=== PATIENT | male | born 1945 | race Two or more races ===

== ENCOUNTER 2020-05-28 20:39 | Emergency (ER) | payer MEDICARE, MEDICAID ==
[~2020-05-28] VITALS: Ht 182.9 cm; Wt 76.2 kg
[2020-05-28] MEDS ORDERED: SODIUM CHLORIDE 0.9% 1,000 ML IV ONE (21:00)
[2020-05-28 21:24] LABS: Hematocrit 40.5 % (41.0-53.0); Hemoglobin 13.9 g/dL (13.5-17.5); Mean Corpuscular Hemoglobin 25.5 pg (28.0-32.0); Mean Corpuscular Hgb Conc. 34.4 g/dL (32.0-36.0); Mean Corpuscular Volume 73.9 fL (80.0-100.0); Platelet Count (auto) 358 10^3/uL (140-450); Red Blood Cells 5.47 10^6/uL (4.5-5.90); Red Cell Distribution Width 14.6 % (11.8-14.3); White Blood Cell 8.7 10^3/uL (4.4-10.8)
[2020-05-28 21:26] LABS: Basophils % (manual) 0 (0.0-2.0); Blast Cells 0; Myelocytes % 0; Promyelocytes % 0; Reactive Lymphocytes 0
[2020-05-28 21:39] LABS: INR 0.97 (0.9-1.15); Partial Thromboplastin Time 29.7 sec (23.0-31.2)
[2020-05-28 21:42] LABS: Albumin 3.4 g/dL (3.4-5.0); Anion Gap 12 (5-15); Aspartate Aminotransferase 33 U/L (15-37); BUN/Creatinine Ratio 11.6; Blood Urea Nitrogen 10 mg/dL (7-18); Calcium 7.9 mg/dL (8.5-10.1); Carbon Dioxide 26 mmol/L (21-32); Chloride 79 mmol/L (98-107); GFR African American 112 mL/min; GFR Non-African American 93 mL/min; Glucose 115 mg/dL (74-106); Magnesium 2.2 mg/dL (1.6-2.6); Potassium 3.1 mmol/L (3.5-5.1)
[2020-05-28 21:47] LABS: Sodium 117 mmol/L (136-145)
[2020-05-28 21:49] LABS: Band Neutrophils % (manual) 2; Eosinophils % (manual) 3 (0-7); Lymphocytes % (manual) 17 (10.0-50.0); Metamyelocytes % 1; Monocytes % (manual) 20 (0-12)
[2020-05-28 21:51] LABS: Alanine Aminotransferase 34 U/L (16-61); Alkaline Phosphatase 103 U/L (45-117); Bilirubin, Total 0.4 mg/dL (0.2-1.0); Total Protein 7.4 g/dL (6.4-8.2)
[2020-05-28 23:34] LABS: Urine Bacteria FEW /hpf (None Seen); Urine Blood Negative /uL (Negative); Urine Specific Gravity 1.002 (1.001-1.035); Urine WBC <1 /hpf (0 - 3)
[2020-05-29] MEDS ORDERED: SODIUM CHL 3% 500 ML IV ONE (08:15)
[2020-05-29 08:23] LABS: BUN/Creatinine Ratio 8.5; Calcium 8.2 mg/dL (8.5-10.1); Potassium 3.1 mmol/L (3.5-5.1)
[2020-05-29] MEDS ORDERED: SODIUM CHLORIDE 0.9% 1,000 ML IV ONE (09:45)
[2020-05-29 13:45] VITALS: BP 166/59
== END 2020-05-29 13:59 | disposition home or self-care (01) ==
LOC: EDBD 20:39 → ER 20:45
DX: E87.1 Hypo-osmolality and hyponatremia (principal); I10 Essential (primary) hypertension; E11.9 Type 2 diabetes mellitus without complications
CPT/HCPCS: 36415; 71045; 80048; 80053; 81001; 83735; 83880; 84443; 84484; 85007; 85027; 85610; 85730; 93005; 96360; 96361

== ENCOUNTER 2020-08-14 21:49 | Emergency (ER) | payer MEDICARE, MEDICAID ==
[~2020-08-14] VITALS: Ht 180.3 cm; Wt 72.6 kg
[2020-08-14 22:59] LABS: Basophils # (auto) 0.1 10 ^3/uL (0-0.2); Basophils % (auto) 0.5 % (0.0-2.0); Eosinophils # (auto) 0.3 10 ^3/uL (0-0.8); Eosinophils % (auto) 2.7 % (0.0-7.0); Hematocrit 41.5 % (41.0-53.0); Hemoglobin 13.8 g/dL (13.5-17.5); Lymphocytes # (auto) 1.6 10 ^3/uL (0.4-5.4); Lymphocytes % (auto) 14.7 % (10.0-50.0); Mean Corpuscular Hemoglobin 24.6 pg (28.0-32.0); Mean Corpuscular Hgb Conc. 33.3 g/dL (32.0-36.0); Mean Corpuscular Volume 74.1 fL (80.0-100.0); Monocytes # (auto) 1.5 10 ^3/uL (0-1.3); Monocytes % (auto) 13.3 % (0.0-12.0); Neutrophils # (auto) 7.6 10 ^3/uL (1.6-8.6); Neutrophils % (auto) 68.8 % (37.0-80.0); Red Blood Cells 5.61 10^6/uL (4.5-5.90); Red Cell Distribution Width 16.1 % (11.8-14.3)
[2020-08-14 23:16] LABS: Albumin 3.6 g/dL (3.4-5.0); Anion Gap 10 (5-15); Blood Urea Nitrogen 17 mg/dL (7-18); Calcium 8.3 mg/dL (8.5-10.1); Carbon Dioxide 25 mmol/L (21-32); Chloride 93 mmol/L (98-107); Glucose 150 mg/dL (74-106); Potassium 3.8 mmol/L (3.5-5.1); Sodium 128 mmol/L (136-145)
[2020-08-14 23:18] LABS: Alanine Aminotransferase 31 U/L (16-61); Aspartate Aminotransferase 26 U/L (15-37); BUN/Creatinine Ratio 18.9; GFR African American 106 mL/min; GFR Non-African American 88 mL/min
[2020-08-14 23:19] LABS: INR 1.06 (0.9-1.15); Partial Thromboplastin Time 28.8 sec (23.0-31.2)
[2020-08-14 23:23] LABS: Alkaline Phosphatase 89 U/L (45-117); Bilirubin, Total 0.5 mg/dL (0.2-1.0); Total Protein 8.2 g/dL (6.4-8.2)
[2020-08-15] MEDS ORDERED: SODIUM CHLORIDE 0.9% 1,000 ML IV ONE (05:30)
[2020-08-15 06:24] VITALS: BP 171/55
== END 2020-08-15 06:51 | disposition home or self-care (01) ==
LOC: EDBD 21:49 → ER 21:49
DX: R07.89 Other chest pain (principal); R00.2 Palpitations; I10 Essential (primary) hypertension; F41.9 Anxiety disorder, unspecified; I25.10 Atherosclerotic heart disease of native coronary artery without angina pectoris; E11.9 Type 2 diabetes mellitus without complications; Z98.890 Other specified postprocedural states
CPT/HCPCS: 36415; 71045; 80053; 83735; 83880; 84484; 85025; 85610; 85730; 93005; 96360; 99285; J7030

== ENCOUNTER 2020-09-11 10:57 | Inpatient (IN) | payer MEDICARE, MEDICAID ==
[~2020-09-11] VITALS: Ht 182.9 cm; Wt 74.5 kg
[2020-09-11] MEDS ORDERED: ASPirin 81 mg TAB PO ONE (11:15)
[2020-09-11 11:16] LABS: Basophils # (auto) 0 10 ^3/uL (0-0.2); Eosinophils # (auto) 0.1 10 ^3/uL (0-0.8)
[2020-09-11 11:18] LABS: Basophils % (auto) 0.6 % (0.0-2.0); Eosinophils % (auto) 1.3 % (0.0-7.0); Hematocrit 40.7 % (41.0-53.0); Hemoglobin 13.9 g/dL (13.5-17.5); Lymphocytes # (auto) 1.8 10 ^3/uL (0.4-5.4); Lymphocytes % (auto) 24.2 % (10.0-50.0); Mean Corpuscular Hemoglobin 25.2 pg (28.0-32.0); Mean Corpuscular Hgb Conc. 34.1 g/dL (32.0-36.0); Mean Corpuscular Volume 73.8 fL (80.0-100.0); Monocytes % (auto) 13.7 % (0.0-12.0); Neutrophils # (auto) 4.5 10 ^3/uL (1.6-8.6); Neutrophils % (auto) 60.2 % (37.0-80.0); Nucleated Red Blood Cells % 0.1 %; Platelet Count (auto) 385 10^3/uL (140-450); Red Blood Cells 5.51 10^6/uL (4.5-5.90); Red Cell Distribution Width 15.3 % (11.8-14.3); White Blood Cell 7.5 10^3/uL (4.4-10.8)
[2020-09-11 11:31] LABS: Albumin 3.4 g/dL (3.4-5.0); Anion Gap 8 (5-15); Blood Urea Nitrogen 13 mg/dL (7-18); Calcium 8.7 mg/dL (8.5-10.1); Carbon Dioxide 26 mmol/L (21-32); Chloride 87 mmol/L (98-107); Glucose 120 mg/dL (74-106); Potassium 3.8 mmol/L (3.5-5.1); Sodium 121 mmol/L (136-145)
[2020-09-11 11:38] LABS: Alanine Aminotransferase 26 U/L (16-61); Alkaline Phosphatase 100 U/L (45-117); Aspartate Aminotransferase 27 U/L (15-37); Bilirubin, Total 0.8 mg/dL (0.2-1.0); GFR African American 102 mL/min; GFR Non-African American 85 mL/min
[2020-09-11] MEDS ORDERED: IOHEXOL 350 MG/ML 100ML IJ ONE (12:14)
[2020-09-11] MEDS ORDERED: MORPHINE SULF INJ 2 MG/ML SYRINGE 1ML IV PRN ×2 (13:45→14:45)
[2020-09-11] MEDS ORDERED: NITROGLYCERIN 0.4 MG SL TAB SL PRN (13:45)
[2020-09-11] MEDS ORDERED: ALPRAZolam 0.5 MG TAB PO PRN (14:45)
[2020-09-11] MEDS ORDERED: ONDANSETRON HCL 4 MG/2 ML VIAL IV PRN (14:45)
[2020-09-11] MEDS ORDERED: ACETAMINOPHEN 325 MG TAB PO PRN (14:45)
[2020-09-11] MEDS ORDERED: traMADol HCL 50 MG TAB PO PRN (14:45)
[2020-09-11] MEDS ORDERED: cloNIDine HCL 0.1 MG TAB PO PRN (14:45)
[2020-09-11] MEDS ORDERED: hydrALAZINE HCL 10 MG TAB PO PRN (14:45)
[2020-09-11] MEDS: SODIUM CHLORIDE 0.9% 1,000 ML IV SCH (15:30)
[2020-09-11 17:49] VITALS: BP 180/77
[2020-09-11] MEDS ORDERED: LABETALOL HCL 5 MG/ML 4ML SYRINGE IV PRN (18:15)
[2020-09-11] MEDS ORDERED: SITA50TA28 PO (18:23)
[2020-09-11] MEDS ORDERED: HYDR12.55 PO (18:23)
[2020-09-11] MEDS ORDERED: ATOR20TA50 PO (18:23)
[2020-09-11] MEDS ORDERED: FUR20T PO (18:23)
[2020-09-11] MEDS ORDERED: LEVO125T7 PO (18:23)
[2020-09-11] MEDS ORDERED: LISI20TA28 PO (18:23)
[2020-09-11] MEDS ORDERED: ALPR0.5T8 PO (18:23)
[2020-09-11] MEDS ORDERED: CLON0.1T PO (18:23)
[2020-09-11] MEDS: amLODIPine BESYLATE 5 MG TAB PO SCH (18:42)
[2020-09-11] MEDS: ATORVASTATIN 20 MG TAB PO SCH (21:32)
[2020-09-11 22:00] VITALS: BP 137/64
[2020-09-12] VITALS (7 sets, daily range): BP systolic 104–148; BP diastolic 61–71
[2020-09-12] MEDS: SODIUM CHLORIDE 0.9% 1,000 ML IV SCH ×3 (00:45→20:45)
[2020-09-12] MEDS: LEVOTHYROXINE SODIUM 50 MCG TAB PO SCH (06:00)
[2020-09-12 06:40] LABS: BUN/Creatinine Ratio 17.3; Calcium 8.2 mg/dL (8.5-10.1); Phosphorus 3.8 mg/dL (2.5-4.90); Potassium 3.7 mmol/L (3.5-5.1)
[2020-09-12] MEDS: amLODIPine BESYLATE 5 MG TAB PO SCH (09:48)
[2020-09-12] MEDS: LISINOPRIL 20 MG TAB PO SCH (09:48)
[2020-09-12] MEDS ORDERED: HYDR-4296 PO (14:32)
[2020-09-12] MEDS: hydrALAZINE HCL 25 MG TAB PO SCH ×2 (14:40→21:20)
[2020-09-12] MEDS: ATORVASTATIN 20 MG TAB PO SCH (21:21)
[2020-09-13 05:00] VITALS: BP 134/80
[2020-09-13] MEDS: LEVOTHYROXINE SODIUM 50 MCG TAB PO SCH (06:15)
[2020-09-13] MEDS: hydrALAZINE HCL 25 MG TAB PO SCH ×2 (06:15→14:50)
[2020-09-13] MEDS: SODIUM CHLORIDE 0.9% 1,000 ML IV SCH (06:16)
[2020-09-13 06:34] LABS: Basophils # (auto) 0.1 10 ^3/uL (0-0.2); Basophils % (auto) 0.7 % (0.0-2.0); Eosinophils # (auto) 0.2 10 ^3/uL (0-0.8); Eosinophils % (auto) 1.7 % (0.0-7.0); Hematocrit 44.2 % (41.0-53.0); Hemoglobin 14.9 g/dL (13.5-17.5); Lymphocytes # (auto) 2.6 10 ^3/uL (0.4-5.4); Lymphocytes % (auto) 27.1 % (10.0-50.0); Mean Corpuscular Hemoglobin 25.2 pg (28.0-32.0); Mean Corpuscular Hgb Conc. 33.7 g/dL (32.0-36.0); Mean Corpuscular Volume 74.8 fL (80.0-100.0); Monocytes # (auto) 1.5 10 ^3/uL (0-1.3); Monocytes % (auto) 15.4 % (0.0-12.0); Neutrophils # (auto) 5.2 10 ^3/uL (1.6-8.6); Neutrophils % (auto) 55.1 % (37.0-80.0); Nucleated Red Blood Cells % 0.1 %; Platelet Count (auto) 421 10^3/uL (140-450); Red Blood Cells 5.91 10^6/uL (4.5-5.90); Red Cell Distribution Width 15.9 % (11.8-14.3); White Blood Cell 9.4 10^3/uL (4.4-10.8)
[2020-09-13 06:43] LABS: Albumin 3.7 g/dL (3.4-5.0); Calcium 8.8 mg/dL (8.5-10.1); Potassium 3.4 mmol/L (3.5-5.1)
[2020-09-13 06:45] LABS: Bilirubin, Total 0.5 mg/dL (0.2-1.0); Total Protein 8.3 g/dL (6.4-8.2)
[2020-09-13 07:03] LABS: INR 1.05 (0.9-1.15)
[2020-09-13 08:00] VITALS: BP 152/75
[2020-09-13 09:00] VITALS: BP 152/75
[2020-09-13] MEDS: amLODIPine BESYLATE 5 MG TAB PO SCH (09:29)
[2020-09-13] MEDS: LISINOPRIL 20 MG TAB PO SCH (09:30)
[2020-09-13] MEDS ORDERED: MEMANTINE HCL 5 MG TAB PO SCH (10:00)
[2020-09-13] MEDS ORDERED: FUROSEMIDE 20 MG TAB PO SCH (10:00)
[2020-09-13] MEDS ORDERED: HCTZ 25 MG TAB PO SCH (10:00)
[2020-09-13 13:00] VITALS: BP 152/75
[2020-09-13] MEDS ORDERED: POTASSIUM CHL 20 Meq TABLET PO ONE (15:00)
[2020-09-13] MEDS ORDERED: POTASSIUM CHLORIDE 20 MEQ in SODIUM CHLORIDE 0.9% 1,000 ML IV SCH (15:00)
[2020-09-13 17:00] VITALS: BP 163/75
== END 2020-09-13 18:07 | disposition home or self-care (01) | DRG 641 ==
LOC: EDBD 10:57 → ER 10:57 → TELE 13:44 → TELE-WESTW 17:50
PROVIDERS: ADMIT Internal Medicine; ATTEND Internal Medicine
DX: E87.1 Hypo-osmolality and hyponatremia (principal); I24.9 Acute ischemic heart disease, unspecified; I25.10 Atherosclerotic heart disease of native coronary artery without angina pectoris; E86.0 Dehydration; R59.1 Generalized enlarged lymph nodes; I10 Essential (primary) hypertension; J40 Bronchitis, not specified as acute or chronic; R07.89 Other chest pain; Z20.822 Contact with and (suspected) exposure to COVID-19; E03.9 Hypothyroidism, unspecified; E11.9 Type 2 diabetes mellitus without complications; R05 Cough; F41.9 Anxiety disorder, unspecified; E78.5 Hyperlipidemia, unspecified; Z79.84 Long term (current) use of oral hypoglycemic drugs; Z82.49 Family history of ischemic heart disease and other diseases of the circulatory system; Z95.5 Presence of coronary angioplasty implant and graft; T46.4X5A Adverse effect of angiotensin-converting-enzyme inhibitors, initial encounter
CPT/HCPCS: 36415; 71045; 71275; 80048; 80053; 83036; 83735; 83880; 84100; 84443; 84484; 84550; 85025; 85379; 85610; 87426; 93005; 93970; 96360; G0378